=== PATIENT | male | born 1965 | race Caucasian/White ===

== ENCOUNTER 2018-11-06 18:08 | Emergency (ER) | payer OTHER ==
[2018-11-06 18:38] VITALS: BP 125/69; PULSE 82; TEMP 97.8; BMI 37.2
--- NOTE | 2018-11-06 19:57 | PDOC ---
Attending Attestation - HPI HPI: 11/06/18 21:12 The patient is a 53 year old male with a PMH of obesity who presents to the ER with chest pain is 10AM today. Patient describes the chest pain as a burning sensation in the epigastric region that worsens when lying flat. Patient also reports 1 episode of NB, NB vomit. Patient is not currently following up with cardiology. Patient denies any shortness of breath, leg swelling, fever, chills, constipation or diarrhea. Allergies: NKDA Social Hx: None reported. Surgeries: None reported. - Physicial Exam PE: 11/06/18 21:12 Agrees with resident's exam. 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
--- NOTE | 2018-11-06 20:57 | PDOC ---
History of Present Illness - General Chief Complaint: Chest Pain Stated Complaint: CHEST PAIN Time Seen by Provider: 11/06/18 19:56 History Source: Patient Exam Limitations: No Limitations - History of Present Illness Initial Comments: 11/06/18 20:48 Patient is a 53M with history of obesity here today complaining of chest pain that onset at 10am. Patient describes the pain as a burning sensation that improves with omeprazole. Patient states the pain was 10/10 earlier today, then 5/10 at triage. Patient is now pain free. Denies fevers, chills, nausea, vomiting. Denies cough, shortness of breath. Denies leg swelling, recent travel and history of blood clots. Has never seen lines tender. Patient reports that he felt a sour taste in his mouth this morning and vomited once. Pain was worse when he was laying down. Past History - Past Medical History Allergies/Adverse Reactions: Allergies Allergy/AdvReac Type Severity Reaction Status Date / Time No Known Allergies Allergy Verified 11/06/18 18:34 COPD: No - Suicide/Smoking/Psychosocial Hx Smoking History: Never smoked Have you smoked in the past 12 months: No Hx Alcohol Use: No Drug/Substance Use Hx: No Substance Use Type: None Review of Systems - Review of Systems Comments:: 11/06/18 20:57 GENERAL/CONSTITUTIONAL: No fever or chills. No weakness. HEAD, EYES, EARS, NOSE AND THROAT: No change in vision. No ear pain or discharge. No sore throat. CARDIOVASCULAR: +chest pain no shortness of breath RESPIRATORY: No cough, wheezing, or hemoptysis. GASTROINTESTINAL: +nausea, +vomiting, no diarrhea or constipation. GENITOURINARY: No dysuria, frequency, or change in urination. MUSCULOSKELETAL: No joint or muscle swelling or pain. No neck or back pain. SKIN: No rash NEUROLOGIC: No headache, vertigo, loss of consciousness, or change in strength/ sensation. ENDOCRINE: No increased thirst. No abnormal weight change HEMATOLOGIC/LYMPHATIC: No anemia, easy bleeding, or history of blood clots. ALLERGIC/IMMUNOLOGIC: No hives or skin allergy. *Physical Exam - Vital Signs Last Vital Signs Temp Pulse Resp BP Pulse Ox 97.8 F 82 18 125/69 99 11/06/18 18:34 11/06/18 18:34 03/12/19 18:34 11/06/18 18:34 11/06/18 18:34 - Physical Exam Comments: 11/06/18 20:58 GENERAL: Awake, alert, and fully oriented, in no acute distress HEAD: No signs of trauma, normocephalic, atraumatic EYES: PERRLA, EOMI, sclera anicteric, conjunctiva clear ENT: Auricles normal inspection, hearing grossly normal, nares patent, oropharynx clear without exudates. Moist mucosa NECK: Normal ROM, supple, no lymphadenopathy, JVD, or masses LUNGS: No distress, speaks full sentences, clear to auscultation bilaterally HEART: Regular rate and rhythm, normal S1 and S2, no murmurs, rubs or gallops, peripheral pulses normal and equal bilaterally. ABDOMEN: Soft, nontender, normoactive bowel sounds. No guarding, no rebound. No masses EXTREMITIES: Normal inspection, Normal range of motion, no edema. No clubbing or cyanosis. NEUROLOGICAL: Cranial nerves II through XII grossly intact. Normal speech, no focal sensorimotor deficits SKIN: Warm, Dry, normal turgor, no rashes or lesions noted. Moderate Sedation - Procedure Monitoring Vital Signs: Procedure Monitoring Vital Signs Temperature 97.8 F 11/06/18 18:34 Pulse Rate 82 11/06/18 18:34 Respiratory Rate 18 11/06/18 18:34 Blood Pressure 125/69 11/06/18 18:34 O2 Sat by Pulse Oximetry (%) 99 11/06/18 18:34 ED Treatment Course - LABORATORY CBC & Chemistry Diagram: 11/06/18 20:44 11/06/18 20:44 - RADIOLOGY Radiology Studies Ordered: Category Date Time Status CHEST PA & LAT [RAD] Stat Radiology 11/06/18 20:02 Ordered Medical Decision Making - Medical Decision Making 11/06/18 20:58 Patient is a 53M with history of obesity here today with chest pain. Atypical. No other risk factors other than obesity. Vitals normal and stable. DDx includes , but is not limited to: ACS, GERD, pneumonia. Do not suspect PE or dissection at this time. Pain free, no treatment necessary. HEART score 2 pending trop. Will do HEART pathway, two trops. IV access obtained via US. 11/07/18 00:16 Trops negative x2. CBC, CMP reassuring. CXR clear. Will discharge with cardiology follow up. *DC/Admit/Observation/Transfer Diagnosis at time of Disposition: Chest pain - Discharge Dispostion Disposition: HOME Condition at time of disposition: Good Decision to Admit order: No - Referrals Referrals: Alyssa Mclean MD [Primary Care Provider] - Reggie Powers MD [Staff Physician] - - Patient Instructions Printed Discharge Instructions: DI for Chest Pain Additional Instructions: Please return if you have any new, worsening or concerning symptoms, especially increasing pain, fever and shortness of breath. Please follow up with a lines tender and your primary care doctor this week. - Post Discharge Activity
[2018-11-06 21:21] LABS: INR 1.09 (0.83-1.09); PROTHROMBIN TIME (PATIENT) 12.9 SEC (9.7-13.0)
[2018-11-06 21:28] LABS: BASO % 0.2 % (0-2.0); EOS % 0.6 % (0-4.5); HEMATOCRIT 43.9 % (35.4-49); LYMPH % 20.1 % (8-40); MCH 28.7 pg (25.7-33.7); MCHC 34.2 g/dl (32.0-35.9); MEAN CELL VOLUME 83.9 fl (80-96); MEAN PLT VOLUME 12.1 fl (7.5-11.1); MONO % 6.2 % (3.8-10.2); NEUT % 72.9 % (42.8-82.8); PLATELET COUNT 158 K/MM3 (134-434); RBC 5.23 M/mm3 (4.00-5.60); RDW 13.8 % (11.9-15.9); WHITE BLOOD COUNT 7.7 K/mm3 (4.0-10.0)
[2018-11-06 21:33] LABS: ALBUMIN 3.8 g/dl (3.4-5.0); ALK PHOS 76 U/L (45-117); ANION GAP 6 MMOL/L (8-16); BLOOD UREA NITROGEN 17 mg/dL (7-18); CALCIUM 9.3 mg/dL (8.5-10.1); CHLORIDE 107 mmol/L (98-107); CO2 27 mmol/L (21-32); GLUCOSE,RANDOM 103 mg/dL (74-106); MAGNESIUM 1.6 mg/dL (1.8-2.4); POTASSIUM 4.3 mmol/L (3.5-5.1); SGOT/AST 17 U/L (15-37); SGPT/ALT 56 U/L (13-61); SODIUM 139 mmol/L (136-145); TOT PROT 7.2 g/dl (6.4-8.2)
--- NOTE | 2018-11-07 11:10 | EKG ---
Test Reason : Blood Pressure : / mmHG Vent. Rate : 068 BPM Atrial Rate : 068 BPM P-R Int : 164 ms QRS Dur : 084 ms QT Int : 438 ms P-R-T Axes : 018 -29 -07 degrees QTc Int : 465 ms SINUS RHYTHM WITH OCCASIONAL PREMATURE VENTRICULAR COMPLEXES OTHERWISE NORMAL ECG WHEN COMPARED WITH ECG OF 06-NOV-2018 18:16, PREMATURE VENTRICULAR COMPLEXES ARE NOW PRESENT Confirmed by HEATHER NAIDU, ALYCIA ([id number]) on 11/07/2018 11:10:05 AM Referred By: Confirmed By:ALYCIA ROMERO MD
--- NOTE | 2018-11-10 18:11 | EKG ---
Test Reason : Blood Pressure : / mmHG Vent. Rate : 068 BPM Atrial Rate : 068 BPM P-R Int : 166 ms QRS Dur : 080 ms QT Int : 430 ms P-R-T Axes : 038 -48 -09 degrees QTc Int : 457 ms NORMAL SINUS RHYTHM LEFT ANTERIOR FASCICULAR BLOCK CANNOT RULE OUT INFERIOR INFARCT (MASKED BY FASCICULAR BLOCK?) , AGE UNDETERMINED ABNORMAL ECG WHEN COMPARED WITH ECG OF 06-MAR-2011 22:38, NO SIGNIFICANT CHANGE WAS FOUND Confirmed by MD ARMIDA, NANCY ([id number]) on 11/10/2018 6:10:42 PM Referred By: Confirmed By:NANCY HUFFMAN MD
== END 2018-11-07 01:27 | disposition home or self-care (01) ==
LOC: JER 18:08
DX: R07.9 Chest pain, unspecified (principal)
CPT/HCPCS: 36415; 71046-TC-FY; 80053; 82550; 82553; 83735; 84484; 85025; 85610; 93005; 93010; 99283-25

== ENCOUNTER 2021-11-19 16:09 | Emergency (ER) | payer OTHER ==
[2021-11-19 16:36] VITALS: BP 123/89; PULSE 75; TEMP 97.7; BMI 37.2
[2021-11-19] MEDS ORDERED: KETOROLAC TROMETHAMINE 30 MG/1 ML VIAL IM ONE (17:22)
[2021-11-19] MEDS ORDERED: KETOROLAC TROMETHAMINE 30 MG/1 ML VIAL ONE (17:24)
== END 2021-11-19 17:40 | disposition home or self-care (01) ==
LOC: FER 16:09
PROC: 3E023GC Introduction of Other Therapeutic Substance into Muscle, Percutaneous Approach (ICD-10-PCS; principal; 2021-11-19)
DX: M25.512 Pain in left shoulder (principal); M25.561 Pain in right knee; V49.40XA Driver injured in collision with unspecified motor vehicles in traffic accident, initial encounter
CPT/HCPCS: 99284-25

== ENCOUNTER 2023-02-11 06:09 | Emergency (ER) | payer OTHER ==
[2023-02-11 06:26] VITALS: BMI 35.9
[2023-02-11] MEDS ORDERED: FENTANYL CITRATE/PF 50 MCG/ML VIAL ONE (06:34)
[2023-02-11 07:13] LABS: BASO % 0.4 % (0-2.0); EOS % 1.6 % (0-4.5); HEMATOCRIT 44.2 % (35.4-49); HEMOGLOBIN 14.5 GM/dL (11.7-16.9); LYMPH % 40.8 % (8-40); MCH 27.3 pg (25.7-33.7); MCHC 32.8 g/dl (32.0-35.9); MEAN CELL VOLUME 83.1 fl (80-96); MEAN PLT VOLUME 12.5 fl (7.5-11.1); MONO % 5.6 % (3.8-10.2); NEUT % 51.6 % (42.8-82.8); PLATELET COUNT 141 10^3/uL (134-434); RBC 5.32 M/mm3 (4.00-5.60); WHITE BLOOD COUNT 7.2 K/mm3 (4.0-10.0)
[2023-02-11 07:24] LABS: INR 1.09 (0.83-1.09); PROTHROMBIN TIME (PATIENT) 12.6 SEC (9.7-13.0)
[2023-02-11 07:26] LABS: POTASSIUM 4.3 mmol/L (3.5-5.1)
[2023-02-11 07:27] LABS: ACTIVATED PTT 27.8 SECONDS (25.2-36.5)
[2023-02-11 07:28] LABS: ALBUMIN 3.8 g/dl (3.4-5.0); BLOOD UREA NITROGEN 20.6 mg/dL (7-18); CALCIUM 9.3 mg/dL (8.5-10.1)
[2023-02-11 07:31] LABS: CREATININE 1.3 mg/dL (0.55-1.3)
[2023-02-11 07:33] LABS: BILIRUBIN,TOTAL 0.9 mg/dL (0.2-1); TOT PROT 6.6 g/dl (6.4-8.2)
[2023-02-11] MEDS ORDERED: ACETAMINOPHEN 1000 MG/100 ML BAG IVPB ONE (08:00)
[2023-02-11] MEDS ORDERED: ACETAMINOPHEN INJECTION 100 ML IVPB ONE (08:10)
[2023-02-11 09:09] VITALS: RESP 16
[2023-02-11] MEDS ORDERED: FLUORESCEIN NA 1 EA STRIP OD ONE (09:36)
[2023-02-11] MEDS ORDERED: TETRACAINE 0.5% HCL 0.6ML DROPPER.BOTTLE OD ONE (09:36)
[2023-02-11] MEDS ORDERED: FLUORESCEIN NA 1 EA STRIP ONE (09:45)
[2023-02-11] MEDS ORDERED: TETRACAINE 0.5% OPHTH SOLN 2 ML BOTTLE ONE (09:45)
[2023-02-11 10:33] VITALS: BP 123/76; PULSE 64; TEMP 97.7
== END 2023-02-11 10:40 | disposition short-term general hospital (02) ==
LOC: JER 06:09
PROC: 3E033NZ Introduction of Analgesics, Hypnotics, Sedatives into Peripheral Vein, Percutaneous Approach (ICD-10-PCS; principal; 2023-02-11)
PROC: 3E033GC Introduction of Other Therapeutic Substance into Peripheral Vein, Percutaneous Approach (ICD-10-PCS; 2023-02-11)
DX: T79.7XXA Traumatic subcutaneous emphysema, initial encounter (principal); R51.9 Headache, unspecified; R07.89 Other chest pain; R10.9 Unspecified abdominal pain; H57.13 Ocular pain, bilateral; M79.10 Myalgia, unspecified site; M79.604 Pain in right leg; M79.605 Pain in left leg; S60.512A Abrasion of left hand, initial encounter; S80.212A Abrasion, left knee, initial encounter; R42 Dizziness and giddiness; V89.2XXA Person injured in unspecified motor-vehicle accident, traffic, initial encounter; Y93.89 Activity, other specified; Y92.410 Unspecified street and highway as the place of occurrence of the external cause; Z20.822 Contact with and (suspected) exposure to COVID-19
CPT/HCPCS: 0241U-QW; 36415; 70450-TC; 71045-TC-FY; 71250-TC; 72125-TC; 72128-TC; 72131-TC; 72170-TC-FY; 73030-TC-LT-FY; 73552-TC-RT-FY; 73590-TC-LT-FY; 74177-TC; 80053; 80307; 84484; 85025; 85610; 85730; 86850; 86900; 86901; 93005; 93010; 99285-25; Q9967